=== PATIENT | male | born 1980 | race Caucasian/White ===

== ENCOUNTER 2021-09-07 13:45 | Emergency (ER) | payer BC, OTHER ==
[~2021-09-07] VITALS: Ht 172.7 cm; Wt 81.8 kg
[2021-09-07 14:35] VITALS: BP 130/99
== END 2021-09-07 16:02 | disposition left against medical advice (07) ==
LOC: ER 13:46
DX: R19.7 Diarrhea, unspecified (principal); R05.9 Cough, unspecified; U07.1 COVID-19
CPT/HCPCS: 87635; 99283; C9803